=== PATIENT | female | born 1960 | race Caucasian/White ===

== ENCOUNTER → 2017-03-27 | Outpatient (CLI) | payer OTHER ==
--- NOTE | 2017-03-27 12:34 | REP ---
Clinical: Pain with recent trauma . Technique: AP, lateral, bilateral oblique views of the left elbow. Findings: Lateral view demonstrates elevation to the anterior fat pad. Mild age-related degenerative changes are noted. No obvious acute fracture is identified. Impression: Elevation to the anterior fat pads suggests effusion/hemarthrosis. No obvious acute fracture or dislocation. Findings may warrant presumptive treatment. Signed by Hari Birmingham MD 03/27/2017 12:26 P
== END ==
LOC: M WUC 12:04
PROVIDERS: ATTEND Physician Assistant
DX: S50.02XA Contusion of left elbow, initial encounter (principal); X58.XXXA Exposure to other specified factors, initial encounter; Y92.89 Other specified places as the place of occurrence of the external cause; Y93.89 Activity, other specified; Y99.8 Other external cause status

== ENCOUNTER → 2020-10-21 | Outpatient (CLI) | payer OTHER ==
[~2020-10-21] MED LIST: ATOR1TAB19 PO; [UNRECOGNIZED DRUG - REMARK] PO
== END ==
LOC: M LABSMTC 10:00
PROVIDERS: ATTEND Anesthesiology
DX: Z01.812 Encounter for preprocedural laboratory examination (principal); Z20.822 Contact with and (suspected) exposure to COVID-19

== ENCOUNTER 2020-10-26 12:33 | Day surgery (SDC) | payer OTHER ==
[~2020-10-26] VITALS: Ht 157.5 cm; Wt 68.0 kg
[~2020-10-26 12:33] MED LIST changes: +LR 1,000 ML IV ONE; +ceFAZolin SOD 1 GM in D5W MINI-BAG PLUS 50 ML IV ONE
[2020-10-26] MEDS ORDERED: LIDOCAINE 1% SDV 30ML VIAL As Ordered ONE (14:05)
[2020-10-26] MEDS ORDERED: fentaNYL 100 MCG/2 ML INJECTION (J3010) As Ordered ONE (14:16)
[2020-10-26] MEDS ORDERED: propofoL 200 MG/20 ML VIAL As Ordered ONE (14:16)
[2020-10-26] MEDS ORDERED: MIDAZOLAM INJ 2MG/2ML VIAL (J2250 PER 1MG) As Ordered ONE (14:16)
[2020-10-26] MEDS ORDERED: ETOMIDATE INJ 20MG/10ML VIAL As Ordered ONE (14:16)
[2020-10-26 15:15] VITALS: BP 139/72
--- NOTE | 2020-10-26 15:55 | RO ---
OPERATIVE NOTE DATE OF OPERATION: 10/26/2020 PREOPERATIVE DIAGNOSIS: Unexplained syncope. PREOPERATIVE DIAGNOSIS: Unexplained syncope. FINDINGS: Unexplained syncope. PROCEDURE PERFORMED: Implantation of subcutaneous cardiac rhythm monitor ([employer]). SURGEON: Cheo Plummer M.D. LIFE SCIENCES TEACHER: None. ANESTHESIA: Lidocaine 1% local/monitored anesthetic care. SPECIMENS: None. ESTIMATED BLOOD LOSS: Less than 1 mL. BLOOD PRODUCTS: No blood products were placed. DRAINS: None. COMPLICATIONS: None. PROCEDURE DESCRIPTION: The patient was prepped and draped over the sternum and left anterior chest. Lidocaine 1% was used for local anesthetic. An incision was made with a #15 blade approximately 1 cm in length at the left fourth interspace, about 1 inch lateral to the left parasternal border. The guide on the insertion tool was then placed into the incision and advanced parallel to the anterior chest wall in a left lateral-caudal direction (more caudal than left lateral in direction). The insertion tool was rotated 180. The punch was then placed into the insertion tool and used to advance the cardiac rhythm monitor into the breast tissue. The punch tool was then removed and then the insertion guide was removed leaving the cardiac rhythm monitor in situ. The initial R-wave amplitude measured 0.81 mV. The skin was then approximated using a 4-0 Biosyn suture, which was placed subcuticular with the free ends protruding through the skin 1 cm from both ends of the incision line. Next, three layers of Dermabond was applied over the incision. The Biosyn suture was used to approximate the skin as close as possible. The Biosyn suture was then removed entirely from the incision line by pulling it through the incision. The patient tolerated the procedure well without any immediate complications. The device implanted was a [employer] Reveal LINQ model LINQ11 with serial number [id number].
== END 2020-10-26 15:30 | disposition home or self-care (01) ==
LOC: M SDC 12:33
PROVIDERS: ATTEND Internal Medicine Cardiovascular Disease
DX: R55 Syncope and collapse (principal); E78.5 Hyperlipidemia, unspecified; Z79.899 Other long term (current) drug therapy
CPT/HCPCS: 33285; C1764; J0690; J2250; J3010

== ENCOUNTER → 2022-02-26 | Outpatient (REF) | payer OTHER ==
[~2022-02-26] MED LIST changes: -LR 1,000 ML IV ONE; -ceFAZolin SOD 1 GM in D5W MINI-BAG PLUS 50 ML IV ONE
== END ==
LOC: M LAB REF 11:27
PROVIDERS: ATTEND Family Medicine
DX: E07.9 Disorder of thyroid, unspecified (principal)

== ENCOUNTER → 2022-06-13 | Outpatient (CLI) | payer OTHER | LOC: M WHC 16:34 | PROVIDERS: ATTEND Nurse Practitioner Family | DX: Z12.31 Encounter for screening mammogram for malignant neoplasm of breast (principal); Z53.9 Procedure and treatment not carried out, unspecified reason ==

== ENCOUNTER → 2022-06-13 | Outpatient (REF) | payer OTHER | LOC: M SFHCWAGY 09:55 | PROVIDERS: ATTEND Nurse Practitioner Family | DX: Z12.4 Encounter for screening for malignant neoplasm of cervix (principal) | CPT/HCPCS: 87624; G0123 ==

== ENCOUNTER → 2023-01-12 | Outpatient (REF) | payer OTHER | LOC: M WUC 18:01 | PROVIDERS: ATTEND Physician Assistant | DX: R30.0 Dysuria (principal) ==

== ENCOUNTER → 2024-01-26 | Outpatient (REF) | payer OTHER ==
[~2024-01-26] MED LIST changes: +CHLO125TA PO; +CURC1POW2 MC; +POTA-136 PO
== END ==
LOC: M LAB REF 12:38
PROVIDERS: ATTEND Student in an Organized Health Care Education/Training Program
DX: R30.0 Dysuria (principal)

== ENCOUNTER → 2024-02-27 | Outpatient (REF) | payer OTHER | LOC: M LAB REF 16:16 | PROVIDERS: ATTEND Physician Assistant | DX: R30.0 Dysuria (principal) ==

== ENCOUNTER → 2024-08-04 | Outpatient (CLI) | payer OTHER | LOC: M WUC 12:55 | PROVIDERS: ATTEND Family Medicine | DX: R06.02 Shortness of breath (principal) ==

== ENCOUNTER 2024-09-03 07:19 | Day surgery (SDC) | payer OTHER ==
[~2024-09-03] VITALS: Ht 157.5 cm; Wt 67.1 kg
[~2024-09-03 07:19] MED LIST changes: +LIDOCAINE 2% 100MG/5ML SDV (FOR ANES.) As Ordered ONE; +propofoL 200 MG/20 ML VIAL As Ordered ONE
[2024-09-03 09:20] VITALS: TEMP 98.5
[2024-09-03 09:45] VITALS: BP 140/72; O2SAT 97
== END 2024-09-03 09:54 | disposition home or self-care (01) ==
LOC: M OPP 07:19
PROVIDERS: ATTEND Surgery
DX: Z12.11 Encounter for screening for malignant neoplasm of colon (principal); Z12.12 Encounter for screening for malignant neoplasm of rectum; D12.3 Benign neoplasm of transverse colon; I10 Essential (primary) hypertension; E78.00 Pure hypercholesterolemia, unspecified; Z79.899 Other long term (current) drug therapy

== ENCOUNTER → 2025-01-31 | Outpatient (REF) | payer OTHER ==
[~2025-01-31] MED LIST changes: -LIDOCAINE 2% 100MG/5ML SDV (FOR ANES.) As Ordered ONE; -propofoL 200 MG/20 ML VIAL As Ordered ONE
== END ==
LOC: M LAB REF 16:55
PROVIDERS: ATTEND Student in an Organized Health Care Education/Training Program
DX: R30.0 Dysuria (principal)